=== PATIENT | female | born 1970 | race Caucasian/White ===

== ENCOUNTER 2016-10-11 10:48 | Outpatient (CLI) | payer OTHER ==
--- NOTE | 2016-10-11 11:26 | DIAGNOSTIC IMAGING REPORT ---
PROCEDURE: XR CHEST 2 VIEW INDICATION: ASTHMA/TOBACCO ABUSE TECHNIQUE: PA and lateral views. COMPARISON: Chest 06/12/2013 FINDINGS: Lungs are clear. Heart and mediastinum are normal. Thorax is normal. IMPRESSION: 1. Negative chest.
== END 2016-10-11 23:00 ==
LOC: LAB SRH 10:48
DX: J45.909 Unspecified asthma, uncomplicated (principal); F17.200 Nicotine dependence, unspecified, uncomplicated
CPT/HCPCS: 90074; 91556; 95059